=== PATIENT | male | born 1985 | race Hispanic/Latino ===

== ENCOUNTER 2020-06-26 16:21 | Emergency (ER) | payer SELFPAY ==
--- NOTE | 2020-06-26 17:42 | RAD ---
Left wrist 4 views HISTORY: Injury. FINDINGS: Old ununited comminuted fracture of the scaphoid waist is present with irregularity and shr inkage of the proximal pole. There is also irregularity and sclerosis of the distal pole. Slight remodeling of the distal radius. Well-corticated old ossific fragment lies just below larger to the distal radius. 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 No acute frac ture is apparent.
--- NOTE | 2020-06-26 17:44 | RAD ---
Exam: XR Hand Lt 3 View STANDARD HISTORY: Left wrist and hand pain after falling from a ladder 6 hours ago. Left wrist and hand injury. COMPARISON: None FINDINGS: There is a remote nonunion fracture involving the waist of the scaphoid bone with fragmentation of th e proximal pole of the scaphoid bone. No acute fracture seen, and there is no evidence of a dislocation. Mild osteoarthritis is seen in region of the radiocarpal joint. No other findings. IMPRESSION: 1. 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 2. No acute osseous abnormality left hand.
== END 2020-06-26 18:00 | disposition home or self-care (01) ==
LOC: MADERS 16:21
DX: S62.002K Unspecified fracture of navicular [scaphoid] bone of left wrist, subsequent encounter for fracture with nonunion (principal); S63.502A Unspecified sprain of left wrist, initial encounter; W11.XXXA Fall on and from ladder, initial encounter